=== PATIENT | male | born 1980 | race Caucasian/White ===

== ENCOUNTER 2016-09-26 09:32 | Emergency (ER) | payer OTHER ==
[2016-09-26 09:45] VITALS: BP 148/121; PULSE 87; TEMP 97.7; BMI 27.3
[2016-09-26] MEDS ORDERED: OXYCODONE/APAP 5/325MG COMBO TABLET ONE (10:01)
[2016-09-26] MEDS ORDERED: OXYCODONE/APAP 5/325MG COMBO TABLET PO ONE (10:15)
[2016-09-26] MEDS ORDERED: IBUPROFEN 600 MG TABLET (FP) PO ONE ×2 (10:15→10:21)
[2016-09-26] MEDS ORDERED: DIPHTH,PERTUSS(ACELL),TET 0.5 ML DISP.SYRIN IM ONE (10:15)
[2016-09-26] MEDS ORDERED: SILVER SULFADIAZINE 1% TOP CREAM 50 GM JAR TP ONE ×2 (10:16→10:21)
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
[2016-09-26] MEDS ORDERED: AZITHROMYCIN 1 GM PACKET ONE (11:39)
== END 2016-09-26 12:01 | disposition home or self-care (01) ==
LOC: JERFT 09:32 → JER 09:32 → JERFT 12:01
PROC: 2W2SX4Z Dressing of Right Foot using Bandage (ICD-10-PCS; principal; 2016-09-26)
PROC: 3E0234Z Introduction of Serum, Toxoid and Vaccine into Muscle, Percutaneous Approach (ICD-10-PCS; 2016-09-26)
DX: T25.021A Burn of unspecified degree of right foot, initial encounter (principal); X12.XXXA Contact with other hot fluids, initial encounter; Y93.89 Activity, other specified; Y92.219 Unspecified school as the place of occurrence of the external cause; Y99.0 Civilian activity done for income or pay; Z87.891 Personal history of nicotine dependence
CPT/HCPCS: 90715; 99281-25